=== PATIENT | female | born 1995 | race Caucasian/White ===

== ENCOUNTER 2025-02-23 09:04 | Emergency (ER) | payer MEDICAID ==
[~2025-02-23] VITALS: Ht 157.5 cm; Wt 87.0 kg
[2025-02-23 09:10] VITALS: TEMP 97.9
[2025-02-23] MEDS: TETanus/Pertussis (Acell)/Diphther VAC/PF (Tdap-Adult) 0.5ml syringe IMVAC ONE (09:52)
[2025-02-23] MEDS: ibuprofen tablet 400 MG TABLET PO ONE (10:12)
[2025-02-23] MEDS: LIDOcaine/epinephrine/tetracaine TOPICAL sol 3 ML syringe TOP ONE (10:13)
[2025-02-23] MEDS: bacitracin 15gm ointment TP ONE (10:13)
[2025-02-23] MEDS: LIDOcaine 1% W/epiNEPHrine 1:100,000 20ml vial IJ ONE (10:15)
--- NOTE | 2025-02-23 10:27 | RADIOLOGY REPORT ---
EXAM: DI KNEE, COMP 4 VW MIN REASON FOR EXAM: knee pain with laceration TECHNIQUE: AP, lateral, tunnel, and sunrise views of the left knee are submitted for review. COMPARISON: None FINDINGS: The bones demonstrate normal mineralization. There is no acute fracture or dislocation. There is no significant knee effusion. There is laceration of the soft tissues anterior to the patella. There is a cluster of small radiodensities medial to the patella that could represent radiopaque for eign bodies in the correct clinical setting. IMPRESSION: No acute fracture or dislocation. Cluster of small radiodensities medial to the patella that could represent radiopaque foreign bodies in the correct clinical setting. Correlate clinically with physical exam.
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
--- NOTE | 2025-02-23 11:45 | RADIOLOGY REPORT ---
Procedure: CT CT LOWER EXTREMITY 02/23/2025 11:20 AM Indication: left knee laceration with concern for joint involvement. Comparison Study: None Technique: Axial images of the left knee were obtained and reformatted in coronal and sagittal planes. All CT scans at this medical facility are performed using dose modulation techniques as appropriate to a performed exam including the following: Automated exposure control was utilized; adjustment of the MA and/or KV according to patient size; and use of iterative reconstruction technique. CT Dose: CTDI volume is 16 mGy. Dose-length product is 537 mGy*cm FINDINGS: Bones: No acute fracture or dislocation. Joint spaces are maintained. Soft tissues: There is a laceration along the medial aspect of the patella with subcutaneous air and small radiopacity. There is no air or fluid in the joint. IMPRESSION: 1. No signs of violation of the joint capsule on this CT exam. 2. No acute fracture or dislocation.
[2025-02-23] MEDS ORDERED: NO HOME MEDS (11:47)
[2025-02-23 13:04] VITALS: BP 104/51; PULSE 71; RESP 16; O2SAT 100
[2025-02-23] MEDS ORDERED: CEPH500C2 PO (13:19)
== END 2025-02-23 13:35 | disposition home or self-care (01) ==
LOC: ER 09:06
DX: S81.012A Laceration without foreign body, left knee, initial encounter (principal); S70.311A Abrasion, right thigh, initial encounter; S50.311A Abrasion of right elbow, initial encounter; S50.312A Abrasion of left elbow, initial encounter; S60.512A Abrasion of left hand, initial encounter; Z90.89 Acquired absence of other organs; V18.4XXA Pedal cycle driver injured in noncollision transport accident in traffic accident, initial encounter; Y93.55 Activity, bike riding; Y92.89 Other specified places as the place of occurrence of the external cause; Y99.8 Other external cause status
CPT/HCPCS: 12032; 73564; 73700; 90471; 90715; 99285; J3490; A6258; A6449